=== PATIENT | female | born 2000 | race Caucasian/White ===

== ENCOUNTER → 2022-05-18 | Outpatient (CLI) | payer OTHER | LOC: M RAD 12:09 | PROVIDERS: ATTEND Physician Assistant | DX: S62.645A Nondisplaced fracture of proximal phalanx of left ring finger, initial encounter for closed fracture (principal); W23.1XXA Caught, crushed, jammed, or pinched between stationary objects, initial encounter ==

== ENCOUNTER → 2022-05-26 | Outpatient (REF) | payer OTHER | LOC: M LAB REF 21:50 | PROVIDERS: ATTEND Physician Assistant Medical | DX: N89.8 Other specified noninflammatory disorders of vagina (principal) ==

== ENCOUNTER → 2022-06-14 | Outpatient (REF) | payer OTHER ==
[2022-06-14 17:46] LABS: APPEARANCE, URINE MANUAL CLEAR (CLEAR); COLOR, URINE MANUAL YELLOW (YELLOW)
[2022-06-14 17:48] LABS: SPECIFIC GRAVITY,URINE MANUAL 1.022 (1.002-1.035)
[2022-06-14 17:49] LABS: BILIRUBIN, URINE MANUAL NEGATIVE (NEGATIVE); BLOOD URINE MANUAL NEGATIVE (NEGATIVE); GLUCOSE, URINE (UA) MANUAL NEGATIVE (NEGATIVE); KETONE, URINE MANUAL NEGATIVE (NEGATIVE); LEUKOCYTE ESTERASE, URINE MAN NEGATIVE (NEGATIVE); NITRITE, URINE MANUAL NEGATIVE (NEGATIVE); PROTEIN, URINE MANUAL NEGATIVE (NEGATIVE); UROBILINOGEN, URINE MANUAL NORMAL (NORMAL)
== END ==
LOC: M LAB REF 17:25
PROVIDERS: ATTEND Physician Assistant Medical
DX: N39.0 Urinary tract infection, site not specified (principal)

== ENCOUNTER 2023-02-23 21:48 | Emergency (ER) | payer OTHER ==
[~2023-02-23] VITALS: Ht 162.6 cm; Wt 62.6 kg
[2023-02-23] MEDS ORDERED: SERT50TA29 (21:55)
[2023-02-23] MEDS ORDERED: HYDR1CAP25 (21:55)
[2023-02-23] MEDS ORDERED: SERT50TA29 PO (23:32)
[2023-02-23] MEDS ORDERED: HYDR1CAP25 PO (23:32)
[2023-02-23] MEDS ORDERED: HOME MED LIST COMPLETE! XX SCH (23:35)
[2023-02-24 06:16] VITALS: BP 114/66; TEMP 98; O2SAT 98
== END 2023-02-24 06:26 | disposition home or self-care (01) ==
LOC: M ED 21:48
DX: F32.A Depression, unspecified (principal); F41.9 Anxiety disorder, unspecified; F17.200 Nicotine dependence, unspecified, uncomplicated; Z79.899 Other long term (current) drug therapy

== ENCOUNTER → 2023-08-27 | Outpatient (CLI) | payer OTHER ==
[~2023-08-27] MED LIST: HYDR1CAP25; HYDR1CAP25 PO; SERT50TA29; SERT50TA29 PO
[2023-08-27 15:41] LABS: BASO % 0.9 % (0.0-1.0); EOS # 0.2 10^3/uL (0.0-0.5); EOS % 4.3 % (0.0-3.0); HEMATOCRIT 40.8 % (36.0-47.0); HEMOGLOBIN 13.9 g/dl (12.0-15.5); LYMPH # 1.4 10^3/uL (1.5-5.0); LYMPH % 30.1 % (24.0-44.0); MEAN CORPUSCULAR HEMOGLOBIN 32.3 pg (27.0-33.0); MEAN CORPUSCULAR HGB CONC 34.1 g/dl (32.0-36.5); MEAN CORPUSCULAR VOLUME 94.7 fl (80.0-96.0); MONO # 0.3 10^3/uL (0.0-0.8); MONO % 6.7 % (2.0-8.0); NEUTROPHILS # 2.7 10^3/uL (1.5-8.5); NEUTROPHILS % 57.6 % (36.0-66.0); PLATELET COUNT, AUTOMATED 349 10^3/uL (150-450); RED BLOOD COUNT 4.31 10^6/uL (4.00-5.40); WHITE BLOOD COUNT 4.7 10^3/uL (4.0-10.0)
[2023-08-27 15:47] LABS: ERYTHROCYTE SEDIMENTATION RATE 6 mm/hr (0-20)
[2023-08-27 16:12] LABS: ALBUMIN 4.2 G/DL (3.2-5.2); ALKALINE PHOSPHATASE 47 U/L (46-116); ALT/SGPT 11 U/L (7.0-40); AST/SGOT 12 U/L (<34); BILIRUBIN,TOTAL 0.4 MG/DL (0.3-1.2); BLOOD UREA NITROGEN 15 MG/DL (9-23); CALCIUM LEVEL 9.4 MG/DL (8.5-10.1); CARBON DIOXIDE LEVEL 28 MMOL/L (20-31); CHLORIDE LEVEL 109 MMOL/L (98-107); CREATININE FOR GFR 0.71 MG/DL (0.55-1.30); GLOMERULAR FILTRATION RATE > 60.0 (>60); GLUCOSE, FASTING 91 MG/DL (60-100); POTASSIUM SERUM 3.9 MMOL/L (3.5-5.1); SODIUM LEVEL 144 MMOL/L (136-145); THYROID STIMULATING HORMONE 3.282 uIU/ML (0.55-4.78); THYROXINE (T4) 7.9 UG/DL (4.5-10.9); TOTAL PROTEIN 7.2 G/DL (5.7-8.2)
[2023-08-27 16:13] LABS: FREE THYROXINE INDEX 2.6 % (1.3-4.8); T UPTAKE 32.5 % (22.5-37.0)
[2023-08-27 16:14] LABS: FOLATE 14.39 NG/ML (>5.4); VITAMIN B12 LEVEL 596 PG/ML (211-911)
== END ==
LOC: M PLALAB 09:07
PROVIDERS: ATTEND Psychiatry & Neurology Neurology
DX: E07.9 Disorder of thyroid, unspecified (principal); D51.9 Vitamin B12 deficiency anemia, unspecified; R41.3 Other amnesia

== ENCOUNTER 2023-11-19 12:47 | Emergency (ER) | payer OTHER ==
[~2023-11-19] VITALS: Ht 162.6 cm; Wt 61.4 kg
[2023-11-19] MEDS ORDERED: IBUP-1022 PO (12:53)
[2023-11-19] MEDS ORDERED: BACL10TA2 PO (12:53)
[2023-11-19] MEDS: ACETAMINOPHEN 325 MG TAB PO ONE (13:25)
[2023-11-19 14:31] VITALS: BP 115/60; TEMP 100.9; O2SAT 97
== END 2023-11-19 14:53 | disposition home or self-care (01) ==
LOC: M ED 12:47
DX: J10.1 Influenza due to other identified influenza virus with other respiratory manifestations (principal); F17.290 Nicotine dependence, other tobacco product, uncomplicated; Z79.1 Long term (current) use of non-steroidal anti-inflammatories (NSAID); Z79.2 Long term (current) use of antibiotics